=== PATIENT | female | born 1995 | race Caucasian/White ===

== ENCOUNTER 2016-04-09 12:08 | Emergency (ER) | payer OTHER ==
[~2016-04-09] VITALS: Ht 170.2 cm; Wt 93.6 kg
[2016-04-09 12:13] VITALS: TEMP 36.8; Ht 170.2 cm; Wt 93.6 kg
[2016-04-09] MEDS ORDERED: MoRPHine SULFATE 4 MG/ML 1 ML CARP\\VIAL IV STA ×2 (12:36→14:56)
[2016-04-09] MEDS ORDERED: ONDANSETRON INJ 2 MG/ML 2 ML VIAL IV STA (12:36)
[2016-04-09] MEDS ORDERED: SODIUM CHLORIDE 0.9% 1000ML 1,000 ML IV STA ×2 (12:36)
[2016-04-09 13:30] LABS: BASO % 0.3 %; BASO ABS # 0.02 K/uL (0-0.2); COMPLETE YES; EOS % 2.9 %; IG% 0.3 %; LYMPH ABS # 2.74 K/uL (1.2-3.4); MEAN CELL VOLUME 82.5 fL (80-100); MEAN CORPUSCULAR HEMOGLOBIN 29.4 pg (25-34); MEAN CORPUSCULAR HGB CONC 35.6 g/dl (32-36); MEAN PLATELET VOLUME 9.9 fL (7.4-10.4); MONO % 9.7 %; NEUT % 48.8 %; PLATELET COUNT 239 K/uL (130-400); RED BLOOD COUNT 4.97 M/uL (4.2-5.4); WHITE BLOOD COUNT 7.21 K/uL (4.8-10.8)
[2016-04-09 13:47] LABS: URINE APPEARANCE CLEAR (CLEAR); URINE BILIRUBIN NEG (NEG); URINE COLOR YELLOW; URINE NITRITE NEG (NEG); URINE SPECIFIC GRAVITY 1.015 (1.000-1.030); UROBILINOGEN NEG (NEG)
[2016-04-09 13:56] LABS: MANUAL MICROSCOPIC REQUIRED? NO; REVIEW REQ? NO
--- NOTE | 2016-04-09 14:21 | DIAGNOSTIC IMAGING REPORT ---
ULTRASOUND RIGHT UPPER QUADRANT ABDOMEN CLINICAL HISTORY: Right upper quadrant abdominal pain. COMPARISON STUDY: No priors. TECHNIQUE: Real-time, grayscale, and color flow sonography of the right upper quadrant of the abdomen was performed. Images are reviewed in the transverse and longitudinal planes. FINDINGS: Liver: The liver is normal in size and echotexture. There is no intrahepatic biliary ductal dilatation. The main portal vein is patent. Gallbladder: The gallbladder is normal in appearance. No gallstones are identified. There is no gallbladder wall thickening or pericholecystic fluid. A sonographic Lindsay's sign is reportedly absent. The common bile duct measures up to 0.4 cm in diameter. Pancreas: Visualized portions of the pancreatic head are normal in appearance. The majority of the pancreas was not well visualized. The splenic vein is patent. Right kidney: Survey images of the right kidney demonstrate normal size and echotexture. There is no hydronephrosis. Ascites: None. IMPRESSION: Unremarkable sonographic assessment of the right upper quadrant. No gallstones are identified. Electronically signed by: Curtis Machado M.D. 04/09/2016 2:19 PM Dictated Date/Time: 04/09/2016 2:18 PM
[2016-04-09 14:40] LABS: ALT/SGPT 46 U/L (12-78)
[2016-04-09 14:43] LABS: ALB/GLOB RATIO 0.9 (0.9-2); ALKALINE PHOSPHATASE 93 U/L (45-117); BLOOD UREA NITROGEN 5 mg/dl (7-18); BUN/CREATININE RATIO 6.8 (10-20); CARBON DIOXIDE 24 mmol/L (21-32); CHLORIDE 107 mmol/L (98-107); CREATININE 0.73 mg/dl (0.60-1.20); GLUCOSE 75 mg/dl (70-99); SODIUM 141 mmol/L (136-145)
[2016-04-09] MEDS ORDERED: OPTIRAY 320 IV PRN (15:00)
--- NOTE | 2016-04-09 15:55 | DIAGNOSTIC IMAGING REPORT ---
CT SCAN OF THE ABDOMEN AND PELVIS WITH IV CONTRAST CLINICAL HISTORY: Right-sided abdominal pain. Nausea and vomiting. Diarrhea. COMPARISON STUDY: Abdominal ultrasound dated 04/09/2016. TECHNIQUE: Following the IV administration of 119 cc of Optiray 320, CT scan of the abdomen and pelvis is performed from the lung bases to the proximal femora. Images are reviewed in the axial, sagittal, and coronal planes. IV contrast was administered without complication. Automated dose control exposure was utilized. CT DOSE: 780.37 mGy.cm FINDINGS: Lung bases: The heart is normal in size and without pericardial effusion. The lung bases are clear noting dependent atelectasis. Liver: The contrast-enhanced liver is normal in size, contour, and attenuation. There is no intrahepatic biliary ductal dilatation. The hepatic veins and portal veins are patent. Gallbladder: Unremarkable. Spleen: Normal in size and attenuation. Pancreas: Unremarkable. Adrenal glands: Unremarkable. Kidneys: The contrast enhanced kidneys are normal in size and without hydronephrosis. The kidneys enhance symmetrically. Abdominal vasculature: The abdominal aorta is normal in course and caliber. Bowel: The small bowel and colon are normal in course and caliber. There is mild to moderate colonic fecal retention. The appendix is well-visualized and normal. Peritoneum: There is no intraperitoneal free air or abdominal ascites. There is a fat-containing umbilical hernia. Lymphadenopathy: None. Pelvic viscera: The bladder, uterus, and adnexa are normal as visualized. There are bilateral ovarian follicles. Trace free fluid is seen in the cul-de-sac. Skeletal structures: No lytic or blastic lesions are seen. IMPRESSION: 1. There are no acute infectious or inflammatory findings in the abdomen or pelvis. 2. There is trace and likely physiologic free fluid in the cul-de-sac. Electronically signed by: Curtis Machado M.D. 04/09/2016 3:53 PM Dictated Date/Time: 04/09/2016 3:50 PM
[2016-04-09] MEDS ORDERED: HYDR-5688 PO (16:06)
[2016-04-09] MEDS ORDERED: OMEP40CA PO (16:06)
[2016-04-09] MEDS ORDERED: ONDA4TAB10 SL (16:08)
--- NOTE | 2016-04-09 16:09 | EMERGENCY ROOM VISIT NOTE ---
History First contact with patient: 12:21 Chief Complaint: ABDOMINAL PAIN Stated Complaint: SHARP PAIN IN RIGHT ABD Nursing Triage Summary: Right-sided abd pain, nausea, vomiting, pain started Tues, worse today. History of Present Illness Patient is an otherwise healthy 20-year-old white female who presents to the emergency department accompanied by her boyfriend's mother for evaluation of right upper quadrant abdominal pain with associated nausea, vomiting and diarrhea 4 days. She notes a dull, achy pain in the right upper quadrant/mid abdomen, that radiates slightly towards the belly button. It has been present for about 4 days, progressively worsening. She states that it was so painful last night that she was crying. She notes associated nausea and vomiting, and diarrhea. She reports 6-8 loose, watery bowel movements per day. No melena, hematochezia or hematemesis. She has not noted a fever. She denies any chills. She states that she would've rated her pain a 10/10 last night, she states it is an 8/10 now. She notes that it is worse after eating. She has tried Tylenol and ibuprofen without relief. She reports a history of lactose intolerance, but does not use any medications presently and eats a normal diet without any problems or complications. Patient has an implantable control device. It has been present for about a year. 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 She states that she had an ultrasound and they "found something" but she does not know the results of her tests. She also had some blood work done just a couple of days ago. Review of Systems Review of systems as per HPI. All other systems reviewed were negative. 10 systems reviewed. Past Medical/Surgical History Medical Problems: (1) Polycystic ovarian syndrome The patient does not have any old records at our facility for review. Her [facility] records were obtained and were reviewed and are on the chart. Her ultrasound did show evidence for polycystic ovarian syndrome. Social History Smoking Status: Current Every Day Smoker Alcohol Use: none Marital Status: in relationship Housing Status: lives with family Occupation Status: student Current/Historical Medications Scheduled Omeprazole (Prilosec), 40 MG PO DAILY Scheduled PRN Hydrocodone/Acetaminophen 5MG/325MG ([place] 5MG/325MG), 1 TABLET PO Q4 PRN for Pain Ondasetron Odt (Zofran Odt), 4 MG SL Q6H PRN for Nausea or Vomiting Allergies Coded Allergies: Penicillins (Unverified Allergy, Intermediate, HIVES, 04/09/16) Physical Exam Vital Signs Date Time Temp Pulse Resp B/P Pulse Ox O2 Delivery O2 Flow Rate FiO2 04/09/16 14:50 75 18 139/91 100 Room Air 04/09/16 12:59 89 16 134/91 96 Room Air 04/09/16 12:13 36.8 92 18 156/89 97 Room Air Physical Exam CONSTITUTIONAL: Patient is an overweight 20-year-old white female who is awake and alert and in no acute distress. EYES: Pupils equal, round, reactive to light and accommodation. EOMs intact without nystagmus. Sclera are anicteric. ENT: Tympanic membranes intact, with normal landmarks. External canals are clear. Oral and nasopharynx are clear. Mucous membranes are moist, no lesions , tongue and gums appear normal. NECK: Supple without lymphadenopathy. No thyromegaly. No meningeal signs. Full active range of motion without discomfort. CARDIOVASCULAR: Regular rate and rhythm, with normal S1 and S2, no murmur or gallop or rub is heard. No carotid bruits auscultated. No JVD. Peripheral pulses easy to palpable. RESPIRATORY: Breath sounds equal and clear to auscultation without wheezes, rales, or rhonchi heard. Full and equal chest expansion without accessory muscle use or retractions. GI: Bowel sounds are present. Abdomen is soft, nondistended, tender to percussion and palpation in the right upper quadrant and the right mid abdomen. There is no pain in the right lower quadrant over McBurney's point. No organomegaly. No pulsatile masses. No guarding or rebound. MUSCULOSKELETAL: Full range of motion of extremities x 4 with good strength. No cyanosis, edema, joint tenderness or swelling. No deformity. INTEGUMENTARY: No lesions or rash, normal skin turgor. NEUROLOGICAL: Alert, oriented, and cooperative. Cranial nerves, sensation and strength grossly intact. Pupils round, equal, and react to light, EOMs are full. LYMPH: No lymphadenopathy. Medical Decision & Procedures ER Provider Diagnostic Interpretation: ULTRASOUND RIGHT UPPER QUADRANT ABDOMEN CLINICAL HISTORY: Right upper quadrant abdominal pain. COMPARISON STUDY: No priors. TECHNIQUE: Real-time, grayscale, and color flow sonography of the right upper quadrant of the abdomen was performed. Images are reviewed in the transverse and longitudinal planes. FINDINGS: Liver: The liver is normal in size and echotexture. There is no intrahepatic biliary ductal dilatation. The main portal vein is patent. Gallbladder: The gallbladder is normal in appearance. No gallstones are identified. There is no gallbladder wall thickening or pericholecystic fluid. A sonographic Lindsay's sign is reportedly absent. The common bile duct measures up to 0.4 cm in diameter. Pancreas: Visualized portions of the pancreatic head are normal in appearance. The majority of the pancreas was not well visualized. The splenic vein is patent. Right kidney: Survey images of the right kidney demonstrate normal size and echotexture. There is no hydronephrosis. Ascites: None. IMPRESSION: Unremarkable sonographic assessment of the right upper quadrant. No gallstones are identified. CT SCAN OF THE ABDOMEN AND PELVIS WITH IV CONTRAST CLINICAL HISTORY: Right-sided abdominal pain. Nausea and vomiting. Diarrhea. COMPARISON STUDY: Abdominal ultrasound dated 04/09/2016. TECHNIQUE: Following the IV administration of 119 cc of Optiray 320, CT scan of the abdomen and pelvis is performed from the lung bases to the proximal femora. Images are reviewed in the axial, sagittal, and coronal planes. IV contrast was administered without complication. Automated dose control exposure was utilized. CT DOSE: 780.37 mGy.cm FINDINGS: Lung bases: The heart is normal in size and without pericardial effusion. The lung bases are clear noting dependent atelectasis. Liver: The contrast-enhanced liver is normal in size, contour, and attenuation. There is no intrahepatic biliary ductal dilatation. The hepatic veins and portal veins are patent. Gallbladder: Unremarkable. Spleen: Normal in size and attenuation. Pancreas: Unremarkable. Adrenal glands: Unremarkable. Kidneys: The contrast enhanced kidneys are normal in size and without hydronephrosis. The kidneys enhance symmetrically. Abdominal vasculature: The abdominal aorta is normal in course and caliber. Bowel: The small bowel and colon are normal in course and caliber. There is mild to moderate colonic fecal retention. The appendix is well-visualized and normal. Peritoneum: There is no intraperitoneal free air or abdominal ascites. There is a fat-containing umbilical hernia. Lymphadenopathy: None. Pelvic viscera: The bladder, uterus, and adnexa are normal as visualized. There are bilateral ovarian follicles. Trace free fluid is seen in the cul-de-sac. Skeletal structures: No lytic or blastic lesions are seen. IMPRESSION: 1. There are no acute infectious or inflammatory findings in the abdomen or pelvis. 2. There is trace and likely physiologic free fluid in the cul-de-sac. Laboratory Results 04/09/16 13:00 Red Blood Count 4.97, Mean Corpuscular Volume 82.5, Mean Corpuscular Hemoglobin 29.4, Mean Corpuscular Hemoglobin Concent 35.6, Mean Platelet Volume 9.9, Neutrophils (%) (Auto) 48.8, Lymphocytes (%) (Auto) 38.0, Monocytes (%) (Auto) 9.7, Eosinophils (%) (Auto) 2.9, Basophils (%) (Auto) 0.3, Neutrophils # (Auto) 3.52, Lymphocytes # (Auto) 2.74, Monocytes # (Auto) 0.70, Eosinophils # (Auto) 0.21, Basophils # (Auto) 0.02 04/09/16 13:00 Test 04/09/16 12:43 04/09/16 13:00 Urine Color YELLOW Urine Appearance CLEAR (CLEAR) Urine pH 7.0 (4.5-7.5) Urine Specific [place] 1.015 (1.000-1.030) Urine Protein NEG (NEG) Urine Glucose (UA) NEG (NEG) Urine Ketones NEG (NEG) Urine Occult Blood NEG (NEG) Urine Nitrite NEG (NEG) Urine Bilirubin NEG (NEG) Urine Urobilinogen NEG (NEG) Urine Leukocyte Esterase NEG (NEG) Urine Test NEG (NEG) White Blood Count 7.21 K/uL (4.8-10.8) Red Blood Count 4.97 M/uL (4.2-5.4) Hemoglobin 14.6 g/dL (12.0-16.0) Hematocrit 41.0 % (37-47) Mean Corpuscular Volume 82.5 fL (80-100) Mean Corpuscular Hemoglobin 29.4 pg (25-34) Mean Corpuscular Hemoglobin Concent 35.6 g/dl (32-36) Platelet Count 239 K/uL (130-400) Mean Platelet Volume 9.9 fL (7.4-10.4) Neutrophils (%) (Auto) 48.8 % Lymphocytes (%) (Auto) 38.0 % Monocytes (%) (Auto) 9.7 % Eosinophils (%) (Auto) 2.9 % Basophils (%) (Auto) 0.3 % Neutrophils # (Auto) 3.52 K/uL (1.4-6.5) Lymphocytes # (Auto) 2.74 K/uL (1.2-3.4) Monocytes # (Auto) 0.70 K/uL (0.11-0.59) Eosinophils # (Auto) 0.21 K/uL (0-0.5) Basophils # (Auto) 0.02 K/uL (0-0.2) RDW Standard Deviation 36.1 fL (36.4-46.3) RDW Coefficient of Variation 12.0 % (11.5-14.5) Immature Granulocyte % (Auto) 0.3 % Immature Granulocyte # (Auto) 0.02 K/uL (0.00-0.02) Anion Gap 10.0 mmol/L (3-11) Est Creatinine Clear Calc Drug Dose 144.4 ml/min Estimated GFR () 137.4 Estimated GFR (Non- 118.6 BUN/Creatinine Ratio 6.8 (10-20) Calcium Level 9.0 mg/dl (8.5-10.1) Total Bilirubin 0.4 mg/dl (0.2-1) Aspartate Amino Transf (AST/SGOT) U/L (15-37) Alanine Aminotransferase (ALT/SGPT) 46 U/L (12-78) Alkaline Phosphatase 93 U/L (45-117) Total Protein 7.6 gm/dl (6.4-8.2) Albumin 3.7 gm/dl (3.4-5.0) Globulin 3.9 gm/dl (2.5-4.0) Albumin/Globulin Ratio 0.9 (0.9-2) Lipase 111 U/L (73-393) Medications Administered Medications (Trade) Dose Ordered Sig/Yris Route Start Time Stop Time Status Last Admin Dose Admin Sodium Chloride 1,000 ml @ 999 mls/hr Q1H1M STAT IV 04/09/16 12:36 04/09/16 13:36 DC 04/09/16 12:36 999 MLS/HR Sodium Chloride (Nss 1000ml) 1,000 ml @ 250 mls/hr Q4H STAT IV 04/09/16 12:36 04/09/16 16:35 04/09/16 12:36 250 MLS/HR Ondansetron HCl (Zofran Inj) 4 mg NOW STAT IV 04/09/16 12:36 04/09/16 12:39 DC 04/09/16 12:57 4 MG Morphine Sulfate (MoRPHine SULFATE INJ) 4 mg NOW STAT IV 04/09/16 12:36 04/09/16 12:39 DC 04/09/16 12:57 4 MG Morphine Sulfate (MoRPHine SULFATE INJ) 4 mg NOW STAT IV 04/09/16 14:56 04/09/16 14:57 DC 04/09/16 15:57 4 MG ED Course The patient was seen and evaluated as above. She has no old records at our facility for review. IV access was obtained and laboratory studies were collected including CBC with differential, CMP, lipase, urinalysis and urine test. She was hydrated with normal saline solution and medicated with morphine and Zofran IV. Given her right upper quadrant pain, biliary ultrasound was performed. I did obtain the patient's recent [facility] gynecology records, which are reviewed and are on the chart. Essentially, she had an ultrasound which showed findings consistent with polycystic ovarian syndrome. She had an elevated total testosterone level, her white count was not elevated and she was not anemic at that time her labs were done 2 days ago. These findings were briefly discussed with the patient, and she was encouraged to follow-up with gynecology for further care and management. The patient's ER workup today revealed a normal white count at 7200, H&H 14 and 41, electrolytes and renal functions are normal. Liver functions are not elevated (AST was hemolyzed), lipase is not indicative of acute pancreatitis. Urine test was negative and urinalysis was completely clear. Right upper quadrant ultrasound did not show any acute biliary pathology. There were no gallstones, sludge or gallbladder wall thickening or pericholecystic fluid. Common bile duct measures 0.4 cm. Pancreas and kidney were visualized and were normal. The patient was reassessed. She continued to complain of pain. She stated that it had improved slightly, but worsened after the pressure from the ultrasound probe. She was reexamined and continued to have right upper quadrant and right mid abdominal pain. CT scan with IV contrast only was ordered. Findings were unremarkable. There is [id number] colonic fecal retention. Appendix was visualized and was normal. Gynecologic structures were unremarkable. The patient was reassessed and is aware of the results of her laboratory and diagnostic imaging studies. Conservative care measures were discussed. Differential diagnoses included gastritis, esophagitis, increased redness, peptic ulcer disease, acute cholecystitis, cholelithiasis, biliary colic, ascending cholangitis, bowel obstruction, perforation, abscess, appendicitis, UTI, pyelonephritis, renal colic, ovarian cyst, among others. She will be placed on Prilosec 40 mg daily. She was given a small prescription for [place] and was given some Zofran to use for pain and nausea. She was advised to follow-up closely with her PCP for further care and management. If she continues to experience symptoms that may be consistent with biliary colic, she may require a HIDA scan, or might require GI follow-up for endoscopy. She was educated on the worrisome signs or symptoms for which she should return to the emergency department. The patient was comfortable with the plan of care as outlined with her. She rated her discomfort a 2/10 at discharge. Medical Decision See ED Course. [employer] [facility] Monitoring [facility] Search Results: patient reviewed within database, no issues identified Impression Primary Impression: Right sided abdominal pain Departure Information Prescriptions Ondasetron Odt (ZOFRAN ODT) 4 Mg Tab 4 MG SL Q6H Y for Nausea or Vomiting, #20 TAB Prov: Danielle Aldana PA 04/09/16 Hydrocodone/Acetaminophen 5MG/325MG ([place] 5MG/325MG) Tab 1 TABLET PO Q4 Y for Pain, #10 TAB For Initial Treatment Prov: Danielle Aldana PA 04/09/16 Omeprazole (Prilosec) 40 Mg Capcr 40 MG PO DAILY, #30 CAP Prov: Danielle Aldana PA 04/09/16 Referrals No Doctor, Assigned (PCP) Patient Instructions A Signature Page Additional Instructions DO NOT drive, drink alcohol, operate machinery, or perform dangerous activities today. You were given medications in the ER that can affect your ability to safely function or operate a vehicle. Hydrocodone/Acetaminophen ([place]) 5/325 mg: Take one tablet every 6-8 hours as needed for breakthrough pain. Avoid alcohol, operating machinery or dangerous equipment, working on ladders or roofs, DRIVING, or situations where being under the influence may be dangerous. It is recommended to use an over-the- counter stool softener such as Colace, 100mg twice daily while taking this medication to avoid constipation. Prilosec 40 mg : 1 tablet daily. Zofran(odansetron) tablets 4mg: Take one and allow it to dissolve in your mouth every four hours as needed for nausea or vomiting. Read all the package inserts or medication information paperwork provided. If you have any questions or concerns call your primary provider, pharmacist or the ER for assistance. Rest and drink plenty of fluids as tolerated. Slow sips of water or sports drinks are recommended instead of large amounts all at once. Continue current medications. Once your stomach is settled start with a clear liquid diet (jello, soup broth, etc.) and then advance as tolerated. You should avoid full, heavy meals for about 24 hrs from the time your symptoms resolved. Return to the ER immediately for worsening or persistent abdominal pain, vomiting, fevers, chest pains, difficulty breathing, black or bloody stools, worsening of your condition, or as needed. Follow up with your primary physician in 1-2 days for a recheck of your current condition.
[2016-04-09 16:30] VITALS: BP 144/99; PULSE 68; O2SAT 99
== END 2016-04-09 16:43 | disposition home or self-care (01) ==
LOC: C.EDB 12:09
DX: R10.11 Right upper quadrant pain (principal); R11.2 Nausea with vomiting, unspecified; R19.7 Diarrhea, unspecified; E28.2 Polycystic ovarian syndrome; F17.200 Nicotine dependence, unspecified, uncomplicated